=== PATIENT | male | born 1985 | race Caucasian/White ===

== ENCOUNTER 2022-12-03 12:10 | Emergency (ER) | payer OTHER ==
[~2022-12-03] VITALS: Ht 177.8 cm; Wt 70.3 kg
== END 2022-12-03 17:09 | disposition home or self-care (01) ==
LOC: ER 12:10
DX: T16.1XXA Foreign body in right ear, initial encounter (principal); X58.XXXA Exposure to other specified factors, initial encounter; Y93.9 Activity, unspecified; Y92.9 Unspecified place or not applicable; Y99.9 Unspecified external cause status; Z88.0 Allergy status to penicillin